=== PATIENT | male | born 1935 | race Caucasian/White ===

== ENCOUNTER 2016-11-04 18:03 | Emergency (ER) | payer OTHER ==
--- NOTE | 2016-11-04 20:02 | ED ORDER SUMMARY ---
..... Patient: KRYSTLE SPARKS OrderSheet [facility] VisitID: [id number] [place] [address] 81y, M Registration Date/Time: 11/04/2016 ORDER SHEET Weight: 83.0 kg (stated) Allergies: NKA GENERAL ORDERS: CBC w Diff Urgent (18:31 11/04/2016 Salima Emmanuel) (Ack 18:36 OHkatrina) (19:04 SBalde R.N.) (19:06 HSoule) CMP Urgent (18:31 11/04/2016 Salima Emmanuel) (Ack 18:36 Alex) (19:04 SBalde R.N.) (19:06 HSoule) MEDICATION ORDERS: IV FLUIDS: Metoprolol IV 2.5 mg (HIGH ALERT MEDICATION, NOW) (19:01 11/04/2016 Salima Emmanuel) (Ack 19:06 HSoule) (19:14 HSoule) ORDER SHEET NOTES: [Electronically signed by Jackie Gill (00:42 11/05/2016)] [Electronically signed by Liu Lenz Dr. (06:34 11/07/2016)] [Electronically locked/signed by Jackie Gill (00:42 11/05/2016)]
--- NOTE | 2016-11-04 20:02 | ED CLINICAL REPORT ---
Clinical Report - Physicians/Mid Levels [facility] [address] [place] [address] 11/04/2016 18:04 Patient: KRYSTLE SPARKS Time Seen: 1821. Arrived- By private vehicle. Historian- patient. HISTORY OF PRESENT ILLNESS Chief Complaint: BLOOD PRESSURE ELEVATED. He is asymptomatic. Checked by patient at home. This started today and is still present. It is not gone now. It was abrupt in onset. Not constant. At its maximum, severity described as moderate. When seen in the E.D., severity described as moderate. Modifying factors. Not worsened by anything. Not relieved by anything. No headache, visual disturbance or weakness. No current or associated symptoms. (called his PCP's office. doctor is out for the week. instructed to go to the emergency department.). Similar symptoms previously: None. Recent medical care: Not recently seen/assessed. REVIEW OF SYSTEMS No fever or headache. All systems otherwise negative, except as recorded above. PAST HISTORY See nurses notes. Medications: Furosemide Oral 40 mg. AmLODIPine Besylate Oral 10 mg, daily. CloNIDine HCl Oral 0.1 mg, at bedtime. Vit C. ASA 81 mg, daily. Lisinopril Oral 20 mg, 2x a day. Lopid Oral 600 mg, 2x a day. Lovastatin Oral (Tablet 20 mg) 1 tablet, daily. Metoprolol Tartrate Oral 100 mg, BID. Allergies: NKA. SOCIAL HISTORY Never smoker. No alcohol use or drug use. No recent travel. Is a local resident. ADDITIONAL NOTES The nursing notes have been reviewed. PHYSICAL EXAM Vital Signs: 11/04/2016 18:19 BP: 160/104. HR: 97. RR: 18. O2 saturation: 98%. Temp: 97.7 F. Hypertensive. Oxygen saturation normal. Appearance: Alert. No acute distress. Eyes: Pupils equal, round and reactive to light. Eyes normal inspection. (no papilledema. normal appearing retinal vasculature.). ENT: Ears normal. Nose normal. Pharynx normal. CVS: Normal heart rate and rhythm. Heart sounds normal. Pulses normal. Respiratory: No respiratory distress. Breath sounds normal. Chest nontender. Abdomen: No visible injury. Soft and nontender. Bowel sounds normal. Skin: Skin warm and dry. Normal skin color. No rash. Normal skin turgor. Extremities: Extremities exhibit normal ROM. No lower extremity edema. Neuro: Oriented X 3. No motor deficit. No sensory deficit. LABS, X-RAYS, AND EKG Laboratory Tests: CBC w Diff: (LUCILLE: 11/04/2016 18:30) ( [facility] 11/04[facility]2016 18:44) Final results Test Result Flag Units (Reference) WHITE BLOOD COUNT 6.0 K/uL (4.5-11.5) RED BLOOD COUNT 4.28 L M/uL (4.50-5.90) HEMOGLOBIN 12.8 L gm/dL (13.5-17.5) HEMATOCRIT 38.1 L % (41.0-53.0) MEAN CELL VOLUME 89 fL (80-100) MEAN CORPUSCULAR HGB 30 pg (26-34) MEAN CORPUSCULAR HGB CONC 34 g/dL (31-37) RED CELL DISTRIBUTION WIDTH 14.6 % (11.6-14.8) PLATELET COUNT 296 K/uL (150-400) NEUTROPHIL % 72.3 % (50-75) LYMPH % 14.4 L % (25-40) MONO % 10.5 % (3-14) EOSINOPHIL % 2.3 % (0-4) BASOPHIL % 0.5 % (0-2) CMP: (LUCILLE: 11/04/2016 18:30) ( [facility] 11/04/2016 18:56) Final results Test Result Flag Units (Reference) GLUCOSE 160 H mg/dL (70-110) BUN 39 H mg/dL (7-18) CREATININE 2.0 H mg/dL (0.6-1.3) Estimated GFR 34.25 mL/min Estimated GFR- 41.51 mL/min Note: Persistent reduction over 3 months in eGFR<60 mL/min/1.73 m2 defines CKD. Patients with eGFR values>=60 mL/min/1.73 m2 may also have CKD if evidence ofpersistent proteinuria. Additional information may be foundat www.kidney.org. SODIUM 134 L mmol/L (136-145) POTASSIUM 4.5 mmol/L (3.5-5.1) CHLORIDE 99 mmol/L (98-107) CARBON DIOXIDE 22 mmol/L (21-32) CALCIUM 9.3 mg/dL (8.5-10.1) TOTAL PROTEIN 8.2 g/dL (6.4-8.2) ALBUMIN 3.2 L g/dL (3.3-5.0) BILIRUBIN, TOTAL 0.3 mg/dL (0.0-1.0) ALKALINE PHOSPHATASE 112 U/L (46-116) AST (SGOT) 20 U/L (15-37) ALT (SGPT) 13 U/L (12-78) . PROGRESS AND PROCEDURES Course of Care: the patient is a pleasant 81-year-old male with past medical history significant for chronic kidney disease and hypertension presenting for Evaluation of elevated blood pressure. Patient will be evaluated for end organ damage. no other findings on examination. Patient is currently asymptomatic. the patient's workup was remarkable for the findings above. Patient's GFR is noted to be slightly above 30. Had a discussion with the patient in regards to some of the blood pressure medications he was on and the risk for continued worsening of his GFR. Had a discussion with the patient in regards to these medications and urged the patient to speak with his primary care doctor in regards to other alternatives or stopping these medications. The patient may be on these medications for specific reasons and would feel more comfortable with the patient's primary care at adjusting his medicationsbecause of the continuity of care. Patient's workup was noted to be otherwise unremarkable. Patient is stable outpatient candidate. Blood pressure at significantly improved while here in the emergency department with the mild to moderate dose of IV beta nitin. Discussed with the patient his workup here in the emergency department included home care, follow-up, and return precautions. All questions have been answered. The patient expressed understanding of these instructions and was agreeable to them. Disposition: Discharged. Condition: good. CLINICAL IMPRESSION Essential hypertension. chronic kidney failure, non-dialysis dependant. INSTRUCTIONS Warnings: GENERAL WARNINGS: Return or contact your physician immediately if your condition worsens or changes unexpectedly, if not improving as expected, or if other problems arise. Specifically return if pain, vomiting, bleeding, breathing difficulty or fever. Your Current Medications: CONTINUE TAKING THE FOLLOWING MEDICATIONS: AmLODIPine Besylate Oral : 10 mg daily. ASA : 81 mg daily. CloNIDine HCl Oral : 0.1 mg at bedtime. Lopid Oral : 600 mg 2x a day. Lovastatin Oral : Tablet 20 mg, 1 tablet daily. Metoprolol Tartrate Oral : 100 mg BID. Vit C*. CONTINUE TAKING THE FOLLOWING MEDICATIONS UNTIL YOU CHECK WITH YOUR PHYSICIAN: Furosemide Oral : 40 mg. Lisinopril Oral : 20 mg 2x a day. Follow-up: Return to the emergency department as needed. Follow up with your doctor in one week. Reason for referral: recheck today's concerns. Summary of care provided to patient via paper. Screening today revealed the patient's blood pressure to be in the hypertensive range. Blood pressure screening was not performed during this visit because the patient has an active diagnosis of hypertension. The patient should follow up with a primary care provider for blood pressure management. Understanding of the discharge instructions verbalized by patient. (Electronically signed by Liu Lenz Dr. 11/07/2016 6:34)
--- NOTE | 2016-11-04 20:02 | ED NURSING NOTES ---
Clinical Report - Nurs[facility] [address] [place] [address] 11/04/2016 18:04 [id number] Triage time 18:19 Nov 04 2016. Acuity: LEVEL 3. Chief Complaint: ("weak in the knees"). Alert. No acute distress. ANTHONY COMA SCORE: Charlotte Coma Scale: 15- eyes open spontaneously (4); best verbal response- oriented x 4 (5); best motor response- obeys commands (6). --18:32 Priscilla Almazan R.N. 18:19 11/04/16. BP: 160/104. HR: 97. RR: 18. O2 saturation: 98%. Temp: 97.7 F. Pain level now 0/10. --18:32 Priscilla Almazan R.N. Weight: 83 kg stated. Height/Length: 68 inches Per Patient. BMI: 27.8. --18:18 Priscilla Almazan R.N. Medications ASA 81 mg, daily. Lisinopril Oral 20 mg, 2x a day. Lopid Oral 600 mg, 2x a day. Lovastatin Oral (Tablet 20 mg) 1 tablet, daily. Metoprolol Tartrate Oral 100 mg, BID. --18:27 Priscilla Almazan R.N. Vit C. --18:27 Priscilla Almazan R.N. CloNIDine HCl Oral 0.1 mg, at bedtime. --18:28 Priscilla Almazan R.N. AmLODIPine Besylate Oral 10 mg, daily. --18:28 Priscilla Almazan R.N. Furosemide Oral 40 mg. --18:29 Priscilla Almazan R.N. Allergies NKA. --18:27 Priscilla Almazan R.N. Medication/allergy information source: the patient. --18:32 Priscilla Almazan R.N. History Arrived by private vehicle. Historian: patient. Accompanied by family and daughter. Primary physician (Dr. Franklin). ( pt states he thinks his BP is high, "I felt weak in the knees and a little shaky today". Pt denies any CP, changes in vision or headache. Only new medicine is Clonidine 0.1mg, started 10/[address] Franklin). This started today. Treatment SCIENTIFIC ARTIST: None. PAST MEDICAL HX: Immunizations: seasonal influenza. SOCIAL HX: Smoker- current status unknown. No alcohol use or drug use. No infectious disease exposure. FALL RISK ASSESSMENT: Fall risk assessment completed. No fall risk identified. NUTRITIONAL RISK ASSESSMENT: The nutritional risk assessment revealed no deficiencies. FUNCTIONAL ASSESSMENT: Functional assessment: no impairments noted. LEARNING NEEDS ASSESSMENT: The learning needs assessment revealed no barriers. SKIN INTEGRITY ASSESSMENT: Skin integrity risk assessment completed. No skin integrity risk identified. --18:32 Priscilla Almazan R.N. PROBLEMS: Fall. Contusion. Abrasion(s). Laceration. Immunizations. Abdominal Pain. Hypertension. Diabetes Mellitus. --18:31 Priscilla Almazan R.N. ADDITIONAL SURGERIES: AAA repair. Abdominal Aortic Aneurysm Repair. Carotid Surgery. Cholecystectomy. Coronary Artery Bypass Graft. Coronary artery bypass grafts x 2. Knee Surgery. --18:31 Priscilla Almazan R.N. Interventions ID band on patient. To room. --18:32 Priscilla Almazan R.N. PHYSICAL ASSESSMENT Ambulatory to room. GENERAL / NEURO / PSYCH: Oriented X 4. Appears in no acute distress. HEENT: Pupils equal, round and reactive to light. No facial asymmetry noted. RESPIRATORY: Respirations not labored. CVS: Normal sinus rhythm noted. ( regular rate). Capillary refill less than 2 seconds. SKIN: Skin is warm and dry. --19:03 Priscilla Almazan R.N. NURSING PROGRESS NOTES Patient ready for evaluation- ED physician notified. --18:32 Priscilla Almazan R.N. 18:32 11/04/2016 Site #1 started via IV in the left wrist with an 20g angiocath; one attempt. Blood drawn: rainbow set. Labeled in the presence of the patient and sent to the lab. Saline lock flushed with 10 mL saline. --18:32 Priscilla Almazan R.N. ( seen by ER Provider.). --19:04 Priscilla Almazan R.N. Care transferred and report received (Priscilla Waldrop RN). --19:07 Jackie Gill 19:07 11/04/16. BP: 188/102. HR: 90. RR: 18. O2 saturation: 96% on room air. --19:07 Jackie Gill 19:08 11/04/16. BP: 162/80. HR: 74. RR: 18. O2 saturation: 98%. Pain level now 0/10. --19:08 Priscilal Almazan R.N. 19:14 11/04/2016 Metoprolol (Metoprolol Tartrate) IVP 2.5 mg given over 4 minute(s) via site #1. Allergies verified and confirmed 5 rights. IV patency established. IV site checked: no pain, redness, or swelling. IV flushed thoroughly pre- and post-medication administration. IVP given by RN. --19:14 Jackie Gill 19:13 11/04/16. BP: 143/89. HR: 74. O2 saturation: 97% on room air. --19:14 Jackie Gill ( Patient up to restroom prior to medication administration. Patient reports improvement in his leg weakness. Family at bedside. No complaints at this time.). --19:16 Jackie Gill 19:16 11/04/16. BP: 129/80. HR: 76. RR: 20. O2 saturation: 97% on room air. --19:21 Jackie Gill 19:27 11/04/16. BP: 135/75. HR: 74. O2 saturation: 97%. --19:28 Jackie Gill 19:32 11/04/16. BP: 124/79. HR: 74. RR: 20. O2 saturation: 97% on room air. --19:33 Jackie Gill 19:40 11/04/16. BP: 123/77. HR: 75. O2 saturation: 98% on room air. --19:41 Jackie Gill. DISPOSITION / DISCHARGE 20:55 11/04/16. BP: 129/80. HR: 76. RR: 20. O2 saturation: 98% on room air. Temp: 98.4 F (oral). Pain level now: 0/10. --00:41 Jackie Gill 20:50 11/04/2016 Site #1 removed upon discharge. Catheter intact. Bandaid applied. --00:41 Jackie Gill 20:55 11/04/16. Condition at departure: improved and stable. The goals identified in the patient's plan of care were met. No learning barriers present. Discharge instructions provided and reviewed with the patient and family. Patient and family verbalized understanding. Written instructions provided in Slovak. ( Follow up with your PCP in one week. Return if symptoms worsen. Take your prescribed medications. Check your blood pressure daily is possible and report unusual changes to your doctor. Patient and family verbalized understanding and had no questions at this time.). The patient was discharged by the physician. He was discharged home and accompanied by family. He left the Emergency Department ambulatory and via private vehicle. Family member driving. FALL RISK ASSESSMENT: Fall risk assessment completed. No fall risk identified. --00:41 Jackie Gill. Locked/Released at 11/05/2016 0:42 by Jackie Gill,
--- NOTE | 2016-11-04 20:02 | ED ORDER SUMMARY ---
..... Patient: KRYSTLE SPARKS OrderSheet [facility] VisitID: [id number] [place] [address] 81y, M Registration Date/Time: 11/04/2016 ORDER SHEET Weight: 83.0 kg (stated) Allergies: NKA GENERAL ORDERS: CBC w Diff Urgent (18:31 11/04/2016 Salima Emmanuel) (Ack 18:36 OHkatrina) (19:04 SBalde R.N.) (19:06 HSoule) CMP Urgent (18:31 11/04/2016 Salima Emmanuel) (Ack 18:36 Alex) (19:04 SBalde R.N.) (19:06 HSoule) MEDICATION ORDERS: IV FLUIDS: Metoprolol IV 2.5 mg (HIGH ALERT MEDICATION, NOW) (19:01 11/04/2016 Salima Emmanuel) (Ack 19:06 HSoule) (19:14 HSoule) ORDER SHEET NOTES: [Electronically signed by Jackie Gill (00:42 11/05/2016)] [Electronically signed by Liu Lenz Dr. (06:34 11/07/2016)] [Electronically locked/signed by Jackie Gill (00:42 11/05/2016)]
--- NOTE | 2016-11-07 06:34 | ED MED RECONCILIATION SUMMARY ---
Patient: KRYSTLE SPARKS Medication Reconciliation Report [facility] VisitID: [id number] [place] [address] 81y, M Registration Date/Time: 11/04/2016 Weight: 83.0 kg Height/Length: 68 in. BMI: 27.8 ALLERGIES: NKA The patient's Home Medications are listed below: CONTINUE TAKING THE FOLLOWING MEDICATIONS: AmLODIPine Besylate Oral 10 mg, daily ASA 81 mg, daily CloNIDine HCl Oral 0.1 mg, at bedtime Lopid Oral 600 mg, 2x a day Lovastatin Oral (20 mg) 1 tablet, daily Metoprolol Tartrate Oral 100 mg, BID Vit C CONTINUE TAKING THE FOLLOWING MEDICATIONS UNTIL YOU CHECK WITH YOUR PHYSICIAN: Furosemide Oral 40 mg Lisinopril Oral 20 mg, 2x a day The source(s) of the original Home Medication information: patient The following Medications were given to the patient in the Emergency Department: Metoprolol [IVP] IVP 2.5 mg, administered: 11/04/2016 7:14:00 PM The following Medications were prescribed to the patient: None.
--- NOTE | 2016-11-07 06:34 | ED DISCHARGE INSTRUCTIONS ---
Patient: JINNY SPARKSKorey Maier General Instructions [facility] VisitID: [id number] [place] [address] 81y, M Registration Date/Time: 11/04/2016 Essential hypertension. chronic kidney failure, non-dialysis dependant. INSTRUCTIONS Warnings: GENERAL WARNINGS: Return or contact your physician immediately if your condition worsens or changes unexpectedly, if not improving as expected, or if other problems arise. Specifically return if pain, vomiting, bleeding, breathing difficulty or fever. Your Current Medications: CONTINUE TAKING THE FOLLOWING MEDICATIONS: AmLODIPine Besylate Oral : 10 mg daily. ASA : 81 mg daily. CloNIDine HCl Oral : 0.1 mg at bedtime. Lopid Oral : 600 mg 2x a day. Lovastatin Oral : Tablet 20 mg, 1 tablet daily. Metoprolol Tartrate Oral : 100 mg BID. Vit C*. CONTINUE TAKING THE FOLLOWING MEDICATIONS UNTIL YOU CHECK WITH YOUR PHYSICIAN: Furosemide Oral : 40 mg. Lisinopril Oral : 20 mg 2x a day. Follow-up: Return to the emergency department as needed. Follow up with your doctor in one week. Reason for referral: recheck today's concerns. Summary of care provided to patient via paper. Screening today revealed the patient's blood pressure to be in the hypertensive range. Blood pressure screening was not performed during this visit because the patient has an active diagnosis of hypertension. The patient should follow up with a primary care provider for blood pressure management. Understanding of the discharge instructions verbalized by patient. ADDITIONAL INFORMATION High Blood Pressure --Established High Blood Pressure (Hypertension) is a chronic disease. The cause is unknown in most cases. It can usually be controlled with lifestyle changes and/or medicines. Symptoms of high blood pressure may include headache, dizziness, visual changes, chest pain and shortness of breath. Sometimes it causes no symptoms at all. However, even if there are no symptoms, untreated high blood pressure increases the risk of heart attack, also known as acute myocardial infarction, or AMI, and stroke. It is a serious health risk and should not be ignored. A normal blood pressure is 120/80 or less. The first (top) number is the "systolic" pressure. The second (bottom) number is the "diastolic" pressure. Hypertension exists when either the top number is 140 or higher, OR the bottom number is 90 or higher on repeated measurements. Home Care: All patients with high blood pressure should do the following to lower their pressure. If you are on medicines, then these methods may reduce or eliminate your need for medicines in the future. Begin a weight loss program if you are overweight. Reduce your salt intake. Avoid high salt foods (olives, pickles, smoked meats, salted potato chips, etc.). Do not add salt to your food at the table. Use only small amounts of salt when cooking. Begin an exercise program. Discuss with your doctor what type of exercise program would be best for you. It doesn't have to be difficult. Even brisk walking for 20 minutes three times a week is a good form of exercise. Avoid medicines which contain heart stimulants. This includes many cold and sinus decongestant pills and sprays as well as diet pills. Check the warnings about hypertension on the label. Stimulants such as amphetamine or cocaine could be lethal for someone with hypertension. Never take these. Limit your caffeine intake or switch to caffeine-free products. Stop smoking. If you are a long-time smoker, this can be hard. Enroll in a stop-smoking program to improve your chance of success. Learning how to handle stress better is an important part of any program to lower blood pressure. Learn about relaxation methods such as meditation, yoga or biofeedback. If medicines were prescribed, take them exactly as directed. Missing doses may cause your blood pressure get out of control. Consider buying an automatic blood pressure machine (available at most pharmacies). Use this to monitor your blood pressure at home and report the results to your doctor. Follow Up: Regular visits to your own physician for blood pressure checks and medicine adjustment is an important part of your care. Make a follow-up appointment as directed by our staff. Get Prompt Medical Attention if any of the following occur: Chest pain or shortness of breath Severe headache Throbbing or rushing sound in the ears Nosebleed Sudden severe abdominal pain Extreme drowsiness, confusion or fainting Dizziness or vertigo (dizziness with spinning sensation) Weakness of an arm or leg or one side of the face Difficulty with speech or vision You have been given the following additional information: Hypertension, Established (Electronically signed by Liu eLnz Dr. 11/07/2016 6:34)
--- NOTE | 2016-11-07 06:34 | ED MAR SUMMARY ---
..... Medication Administration Record [facility] [address] [place] [address] Patient: KRYSTLE SPARKS Visit ID: [id number] 81y, M Weight: 83.0 kg Height/Length: 68 in BMI: 27.8 ALLERGIES: NKA Given 19:14 11/04/2016 Jackie Gill, Medication Administered: METOPROLOL [IVP] (METOPROLOL TARTRATE), Dose: 2.5 mg IVP over 4 minute(s), Site: #1 left wrist. Medication Ordered: Metoprolol IV 2.5 mg (HIGH ALERT MEDICATION, NOW).
--- NOTE | 2016-11-07 06:34 | ED MED RECONCILIATION SUMMARY ---
Patient: KRYSTLE SPARKS Medication Reconciliation Report [facility] VisitID: [id number] [place] [address] 81y, M Registration Date/Time: 11/04/2016 Weight: 83.0 kg Height/Length: 68 in. BMI: 27.8 ALLERGIES: NKA The patient's Home Medications are listed below: CONTINUE TAKING THE FOLLOWING MEDICATIONS: AmLODIPine Besylate Oral 10 mg, daily ASA 81 mg, daily CloNIDine HCl Oral 0.1 mg, at bedtime Lopid Oral 600 mg, 2x a day Lovastatin Oral (20 mg) 1 tablet, daily Metoprolol Tartrate Oral 100 mg, BID Vit C CONTINUE TAKING THE FOLLOWING MEDICATIONS UNTIL YOU CHECK WITH YOUR PHYSICIAN: Furosemide Oral 40 mg Lisinopril Oral 20 mg, 2x a day The source(s) of the original Home Medication information: patient The following Medications were given to the patient in the Emergency Department: Metoprolol [IVP] IVP 2.5 mg, administered: 11/04/2016 7:14:00 PM The following Medications were prescribed to the patient: None.
--- NOTE | 2016-11-07 06:34 | ED MAR SUMMARY ---
..... Medication Administration Record [facility] [address] [place] [address] Patient: KRYSTLE SPARKS Visit ID: [id number] 81y, M Weight: 83.0 kg Height/Length: 68 in BMI: 27.8 ALLERGIES: NKA Given 19:14 11/04/2016 Jacike Gill, Medication Administered: METOPROLOL [IVP] (METOPROLOL TARTRATE), Dose: 2.5 mg IVP over 4 minute(s), Site: #1 left wrist. Medication Ordered: Metoprolol IV 2.5 mg (HIGH ALERT MEDICATION, NOW).
== END 2016-11-04 20:55 | disposition home or self-care (01) ==
LOC: ED SRH 18:03
DX: I10 Essential (primary) hypertension (principal); N18.9 Chronic kidney disease, unspecified; Z79.899 Other long term (current) drug therapy; Z79.82 Long term (current) use of aspirin
CPT/HCPCS: 90100; 95059